=== PATIENT | male | born 1960 | race African-American/Black ===

== ENCOUNTER 2017-03-30 16:36 | Emergency (ER) | payer MEDICAID, OTHER ==
[~2017-03-30] VITALS: Ht 185.4 cm; Wt 82.0 kg
[2017-03-30 18:35] VITALS: BP 127/80
== END 2017-03-30 21:42 | disposition home or self-care (01) ==
LOC: ER 16:36
DX: T59.91XA Toxic effect of unspecified gases, fumes and vapors, accidental (unintentional), initial encounter (principal); H10.213 Acute toxic conjunctivitis, bilateral; J98.01 Acute bronchospasm; L24.9 Irritant contact dermatitis, unspecified cause; F12.10 Cannabis abuse, uncomplicated
CPT/HCPCS: 99283

== ENCOUNTER 2017-06-10 10:53 | Emergency (ER) | payer MEDICAID ==
[~2017-06-10] VITALS: Ht 185.4 cm; Wt 86.0 kg
[2017-06-10 10:59] VITALS: BP 134/88
== END 2017-06-10 14:49 | disposition left against medical advice (07) ==
LOC: ER 10:55
DX: R07.9 Chest pain, unspecified (principal); Z53.21 Procedure and treatment not carried out due to patient leaving prior to being seen by health care provider

== ENCOUNTER 2017-06-20 21:22 | Emergency (ER) | payer MEDICAID ==
[~2017-06-20] VITALS: Ht 188 cm; Wt 81.0 kg
[2017-06-20] MEDS ORDERED: HYDROCODONE/APAP 7.5/325MG 1 TAB TABLET PO ONE (23:00)
[2017-06-20] MEDS ORDERED: LIDOCAINE HCL 1%/EPI 1:200,000 30 ML VIAL MC ONE (23:30)
[2017-06-20] MEDS ORDERED: BACITRACIN ZINC OINT UDPKT TOP ONE (23:30)
[2017-06-20] MEDS ORDERED: TETANUS, DIPHTHERIA, PERTUSSIS VAC/PF 0.5ML (>7YR OLD) IM ONE (23:30)
[2017-06-20] MEDS ORDERED: LIDOCAINE HCL 1%/EPI 1:200,000 30 ML VIAL MC SCH (23:45)
[2017-06-21 02:27] VITALS: BP 126/79
== END 2017-06-21 02:27 | disposition home or self-care (01) ==
LOC: ER 21:44
DX: S71.112A Laceration without foreign body, left thigh, initial encounter (principal); X99.1XXA Assault by knife, initial encounter; Y93.89 Activity, other specified; Y92.488 Other paved roadways as the place of occurrence of the external cause
CPT/HCPCS: 12001; 73552; 90471; 90715; 99284; A4217; Z7610

== ENCOUNTER 2017-06-24 10:42 | Emergency (ER) | payer MEDICAID ==
[~2017-06-24] VITALS: Ht 185.4 cm; Wt 84.0 kg
[2017-06-24 10:48] VITALS: BP 112/71
== END 2017-06-24 11:50 | disposition home or self-care (01) ==
LOC: ER 11:18
DX: S71.112D Laceration without foreign body, left thigh, subsequent encounter (principal); X58.XXXD Exposure to other specified factors, subsequent encounter
CPT/HCPCS: 99281; Z7610

== ENCOUNTER 2018-01-31 12:49 | Emergency (ER) | payer MEDICAID ==
[~2018-01-31] VITALS: Ht 182.9 cm; Wt 80.0 kg
[2018-01-31] MEDS ORDERED: HYDROCODONE/ACETAMINOPHEN 5/325MG TABLET PO ONE (15:15)
[2018-01-31 16:08] VITALS: BP 116/73
== END 2018-01-31 18:04 | disposition home or self-care (01) ==
LOC: ER 12:49
DX: M54.2 Cervicalgia (principal); M54.5 Low back pain; R07.89 Other chest pain; M47.892 Other spondylosis, cervical region; W22.01XA Walked into wall, initial encounter; Y93.89 Activity, other specified; Y92.89 Other specified places as the place of occurrence of the external cause; Y99.8 Other external cause status
CPT/HCPCS: 71045; 72110; 72125; 99284; J7030